=== PATIENT | male | born 1950 | race Caucasian/White ===

== ENCOUNTER 2019-09-09 18:23 | Emergency (ER) | payer MEDICARE ==
[~2019-09-09] VITALS: Ht 170.2 cm; Wt 90.4 kg
[2019-09-09 18:40] VITALS: BP 167/104
[2019-09-09] MEDS ORDERED: LIDOCAINE-MPF 1%, 5ML ONE (20:10)
[2019-09-09] MEDS ORDERED: LIDOCAINE-MPF 1%, 5ML INFIL ONE (20:30)
--- NOTE | 2019-09-09 21:25 | NUR ---
Patient given wound care & discharge instructions and they have confirmed that they understand the instructions. Patient ambulatory with steady gait.
== END 2019-09-09 21:26 | disposition home or self-care (01) ==
LOC: ED 21:20
DX: S01.81XA Laceration without foreign body of other part of head, initial encounter (principal); S60.511A Abrasion of right hand, initial encounter; I10 Essential (primary) hypertension; W01.0XXA Fall on same level from slipping, tripping and stumbling without subsequent striking against object, initial encounter; Y93.89 Activity, other specified; Y92.488 Other paved roadways as the place of occurrence of the external cause; Y99.8 Other external cause status
CPT/HCPCS: 12011; 99283